=== PATIENT | male | born 1950 | race Caucasian/White ===

== ENCOUNTER → 2017-02-15 | Outpatient (CLI) | payer MEDICARE, OTHER ==
[~2017-02-15] MED LIST: ASCO-96 PO; LISI1TAB5 PO
== END | disposition home or self-care (01) ==
LOC: CFH 06:35
PROVIDERS: ATTEND Family Medicine
DX: I70.0 Atherosclerosis of aorta (principal)
CPT/HCPCS: 93978

== ENCOUNTER → 2017-08-13 | Outpatient (CLI) | payer MEDICARE, OTHER | END | disposition home or self-care (01) | LOC: CFH 13:36 | PROVIDERS: ATTEND Family Medicine | DX: M17.11 Unilateral primary osteoarthritis, right knee (principal) ==

== ENCOUNTER 2017-11-12 08:29 | Emergency (ER) | payer MEDICARE, OTHER ==
[~2017-11-12] VITALS: Ht 188 cm; Wt 110.9 kg
[2017-11-12 09:47] VITALS: BP 132/81
[2017-11-12] MEDS ORDERED: KETOROLAC 30 MG/1 ML ONE (10:11)
[2017-11-12] MEDS ORDERED: CYCLOBENZAPRINE 10 MG TABLET ONE (10:11)
[2017-11-12] MEDS ORDERED: CYCLOBENZAPRINE 10 MG TABLET PO ONE (10:30)
[2017-11-12] MEDS ORDERED: KETOROLAC 30 MG/1 ML IM ONE (10:30)
== END 2017-11-12 10:31 | disposition home or self-care (01) ==
LOC: ED 09:30
DX: M79.662 Pain in left lower leg (principal); M25.552 Pain in left hip
CPT/HCPCS: 73502; 93971; 96372; 99284; J1885

== ENCOUNTER → 2018-08-01 | Outpatient (CLI) | payer MEDICARE, OTHER ==
[2018-08-01 10:38] LABS: BASOPHILS # (AUTO) 0.05 x10^3/uL (0-0.1); BASOPHILS % (AUTO) 1 % (0-1); EOSINOPHILS # (AUTO) 0.22 x10^3/uL (0-0.4); EOSINOPHILS % (AUTO) 3 % (1-7); LYMPHOCYTES # (AUTO) 2.67 x10^3/uL (1-3.4); LYMPHOCYTES % (AUTO) 35 % (22-44); MD NO; MEAN CORPUSCULAR HGB CONC 34.1 g/dL (33.2-36.2); MEAN PLATELET VOLUME 9.1 fL (7.4-10.4); MONOCYTES # (AUTO) 0.78 x10^3/uL (0.2-0.8); MONOCYTES % (AUTO) 10 % (2-9); NEUTROPHILS # (AUTO) 3.93 x10^3/uL (1.8-6.8); NEUTROPHILS % (AUTO) 51 % (42-75); PLATELET COUNT 278 x10^3/uL (130-400); RED BLOOD COUNT 5.38 x10^6/uL (4.38-5.82); RED CELL DISTRIBUTION WIDTH 13.6 % (9.4-14.8)
[2018-08-01 10:42] LABS: INTERNATIONAL NORMALIZED RATIO 1.1 (0.93-1.1); PROTHROMBIN TIME 11.4 Seconds (9.6-11.5)
[2018-08-01 10:44] LABS: ALBUMIN 3.9 g/dL (3.4-5.0); ANION GAP 9 mmol/L (5-15); CALCIUM 9.3 mg/dL (8.5-10.1); CHLORIDE 105 mmol/L (98-107)
[2018-08-01 10:49] LABS: ALANINE AMINOTRANSFERASE 33 U/L (12-78); ALKALINE PHOSPHATASE 63 U/L (45-117); BILIRUBIN,TOTAL 0.6 mg/dL (0.2-1.0); CREATININE 1.01 mg/dL (0.7-1.3); TOTAL PROTEIN 7.4 g/dL (6.4-8.2)
[2018-08-01 11:12] LABS: MICROSCOPIC NOT IND
[2018-08-01 11:13] LABS: CULTURE INDICATED? NO
== END | disposition home or self-care (01) ==
LOC: STAR 09:07
PROVIDERS: ATTEND Orthopaedic Surgery Adult Reconstructive Orthopaedic Surgery
DX: Z01.818 Encounter for other preprocedural examination (principal); M25.561 Pain in right knee; M17.11 Unilateral primary osteoarthritis, right knee
CPT/HCPCS: 36415; 80053; 81003; 85025; 85610; 85730; 87081; 93005

== ENCOUNTER 2018-08-06 06:55 | Day surgery (SDC) | payer MEDICARE, OTHER ==
[~2018-08-06] VITALS: Ht 188 cm; Wt 105.3 kg
[2018-08-06 07:24] VITALS: BP 129/88
[2018-08-06] MEDS ORDERED: LACTATED RINGERS 1,000 ML IV SCH (07:27)
[2018-08-06] MEDS ORDERED: LIDOCAINE-MPF 1%, 2ML ONE (07:29)
[2018-08-06] MEDS ORDERED: LIDOCAINE-MPF 1%, 2ML INFIL ONE (07:30)
[2018-08-06] MEDS ORDERED: MIDAZOLAM 1 MG/ML, 2ML ONE (07:31)
[2018-08-06] MEDS ORDERED: FENTANYL PF 250 MCG/5ML ONE (07:31)
== END 2018-08-06 13:25 | disposition home or self-care (01) ==
LOC: OUT 06:55
PROVIDERS: ATTEND Orthopaedic Surgery Adult Reconstructive Orthopaedic Surgery
DX: M17.11 Unilateral primary osteoarthritis, right knee (principal); Z53.8 Procedure and treatment not carried out for other reasons; I10 Essential (primary) hypertension; G47.33 Obstructive sleep apnea (adult) (pediatric); E66.9 Obesity, unspecified; Z88.1 Allergy status to other antibiotic agents; Z88.8 Allergy status to other drugs, medicaments and biological substances; Z87.39 Personal history of other diseases of the musculoskeletal system and connective tissue; Z98.890 Other specified postprocedural states
CPT/HCPCS: 27447; 93005; J2250; J3490; J7120; J3010

== ENCOUNTER → 2018-08-07 | Outpatient (CLI) | payer MEDICARE, OTHER | END | disposition home or self-care (01) | LOC: CVU 10:19 | PROVIDERS: ATTEND Internal Medicine Cardiovascular Disease | DX: I35.8 Other nonrheumatic aortic valve disorders (principal); I10 Essential (primary) hypertension | CPT/HCPCS: 93306 ==

== ENCOUNTER → 2020-10-25 | Outpatient (CLI) | payer MEDICARE, OTHER ==
[~2020-10-25] MED LIST changes: +LISI1TAB39 PO; -LISI1TAB5 PO; +MELO7.5T31 PO; +OXYC5CAP2 PO; +TRAM50TA2 PO
== END | disposition home or self-care (01) ==
LOC: STAR 15:41
PROVIDERS: ATTEND Family Medicine
DX: Z01.818 Encounter for other preprocedural examination (principal); I51.7 Cardiomegaly
CPT/HCPCS: 93005

== ENCOUNTER 2020-11-18 07:45 | Outpatient (CLI) | payer MEDICARE, OTHER ==
[2020-11-18 10:01] LABS: ALANINE AMINOTRANSFERASE 28 U/L (12-78); ALBUMIN 3.9 g/dL (3.4-5.0); ANION GAP 6 mmol/L (5-15); CALCIUM 9.3 mg/dL (8.5-10.1); CHLORIDE 106 mmol/L (98-107)
[2020-11-18 10:03] LABS: ALKALINE PHOSPHATASE 73 U/L (45-117); BILIRUBIN,TOTAL 0.4 mg/dL (0.2-1.0); TOTAL PROTEIN 7.4 g/dL (6.4-8.2)
[2020-11-23] MEDS ORDERED: TYLENOL ARTHRITIS PO (06:07)
== END 2020-11-18 23:59 | disposition home or self-care (01) ==
LOC: STAR 07:45
PROVIDERS: ATTEND Orthopaedic Surgery
DX: Z01.812 Encounter for preprocedural laboratory examination (principal); Z20.828 Contact with and (suspected) exposure to other viral communicable diseases; M19.011 Primary osteoarthritis, right shoulder
CPT/HCPCS: 80053; 87081; 87635; 93005